=== PATIENT | male | born 1950 | race Caucasian/White ===

== ENCOUNTER 2020-09-06 23:23 | Emergency (ER) | payer MEDICARE ==
[2020-09-06] MEDS ORDERED: Nitrostat 0.4 MG (ED) SL ONE (23:33)
[2020-09-06] MEDS ORDERED: BABY ASPIRIN 81 MG CHEW PO ONE (23:33)
--- NOTE | 2020-09-06 23:33 | ERPHSYRPT ---
- History of Present Illness Time Seen by Provider: 09/06/20 23:33 Historian: patient, EMS Physician History: This is a 70-year-old overweight [id number] diabetic white male with a history of hypertension and elevated cholesterol presents with chest pain that began concurrently with diaphoresis. Patient has had frequent abnormal EKGs but normal cardiac work-ups in the past. Usually they find an abnormal EKG when the patient is undergoing cardiac clearance prior to surgical procedures. He does not have any documented history of coronary disease. He had a normal cardiac catheterization several years ago. He does not have shortness of breath. His chest pain now is just to the left of midline that radiates into his left scapula. He has no cough. He has no hemoptysis. He rates his chest pain now at a 1-2 out of 10. Patient did have injections of cortisone in his fingers and knees today. He had no chest pain prior to late afternoon early evening. He has no local physician or primary care provider. They moved here to this area approximately 4 years ago from [facility] Timing/Duration: improved Activities at Onset: none Quality: aching Location: other (Left anterior chest) Chest Pain Radiation: arm, back Severity of Pain-Max: moderate Severity of Pain-Current: mild Modifying Factors: Improves With: nothing Associated Symptoms: denies symptoms Nitro Today/Relief: 0.4 mg x 1 Aspirin Treatment Today: 325 mg x 1, provided at home Allergies/Adverse Reactions: No Known Drug Allergies Allergy (Verified 09/07/20 00:00) Home Medications: Albuterol Sulfate [Proair Hfa] 8.5 gm IH Q4H PRN PRN 09/07/20 [History] Aspirin EC 81 mg [Ecotrin 81 mg] 81 mg PO DAILY 09/07/20 [History] Glimepiride 1 mg PO DAILY 09/07/20 [History] Lisinopril/Hydrochlorothiazide [Lisinopril-Hctz 20-12.5 mg Tab] 1 each PO DAILY 09/07/20 [History] Meclizine HCl 25 mg [Antivert 25 mg] 25 mg PO Q8H PRN PRN 09/07/20 [History] Simvastatin [Zocor] 40 mg PO DAILY 09/07/20 [History] Testosterone Cypionate 200 mg IM UD 09/07/20 [History] Tramadol HCl 50 mg [Ultram 50 mg] 50 mg PO Q8H PRN PRN 09/07/20 [History] Hx Tetanus, Diphtheria Vaccination/Date Given: No Hx Influenza Vaccination/Date Given: Yes Hx Pneumococcal Vaccination/Date Given: No Travel Risk - International Travel Have you traveled outside of the country in past 3 weeks: No - Coronavirus Screening Are you exhibiting any of the following symptoms?: No Close contact with a COVID-19 positive Pt in past 14-21 Days: No - Review of Systems Constitutional: No Symptoms Eyes: No Symptoms Ears, Nose, & Throat: No Symptoms Respiratory: No Symptoms Cardiac: Chest Pain Abdominal/Gastrointestinal: No Symptoms Genitourinary Symptoms: No Symptoms Musculoskeletal: No Symptoms Skin: No Symptoms Neurological: No Symptoms Psychological: No Symptoms Endocrine: No Symptoms Hematologic/Lymphatic: No Symptoms Immunological/Allergic: No Symptoms All Other Systems: Reviewed and Negative - Past Medical History Pertinent Past Medical History: Yes Cardiac History: High Cholesterol, Hypertension - Past Surgical History Past Surgical History: Yes Other Surgical History: HERNIA. LT ARM. HEART CATH - Social History Smoking Status: Never smoker Exposure to second hand smoke: No Drug Use: none Patient Lives Alone: No - Nursing Vital Signs Nursing Vital Signs: Initial Vital Signs O2 Sat by Pulse Oximetry 94 L 09/06/20 23:33 Pain Scale Pain Intensity 2 - Physical Exam General Appearance: no apparent distress, alert, anxiety, obese Eye Exam: PERRL/EOMI, eyes nml inspection Ears, Nose, Throat Exam: normal ENT inspection, moist mucous membranes Neck Exam: normal inspection, non-tender Respiratory Exam: normal breath sounds, chest tenderness, lungs clear, airway intact, No respiratory distress Cardiovascular Exam: regular rate/rhythm, normal heart sounds, normal peripheral pulses Gastrointestinal/Abdomen Exam: soft, normal bowel sounds, No tenderness, No guarding Rectal Exam: not done Back Exam: normal inspection, normal range of motion, No CVA tenderness, No vertebral tenderness Extremity Exam: normal inspection, normal range of motion, pelvis stable Neurologic Exam: alert, oriented x 3, cooperative, 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 tested, normal mood/affect, nml cerebellar function, nml station & gait, sensation nml Skin Exam: normal color, warm, dry Lymphatic Exam: No adenopathy SpO2 Interpretation: normal O2 Delivery: Room Air - Course Nursing assessment & vital signs reviewed: Yes Ordered Tests: Active Orders 24 hr Category Date Time Status 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 Care 09/06/20 23:34 Active EKG-ER Only STAT Care 09/06/20 23:33 Active IV Insertion STAT Care 09/06/20 23:33 Active Pulse Oximetry (ED) STAT Care 09/06/20 23:33 Active CHEST 1 VIEW (PORTABLE) Stat Exams 09/07/20 00:00 Taken CBC W DIFF Stat Lab 09/06/20 23:45 Completed CMP Stat Lab 09/06/20 23:45 Completed D-DIMER QUANTITATIVE Stat Lab 09/06/20 23:45 Completed NT PRO BNP Stat Lab 09/06/20 23:45 Completed POCT GLUCOSE Stat Lab 09/06/20 23:42 Completed PROTIME WITH INR Stat Lab 09/06/20 23:45 Completed TROPONIN Q3H Lab 09/06/20 23:45 Completed TROPONIN Q3H Lab 09/07/20 02:45 Ordered TROPONIN Q3H Lab 09/07/20 05:45 Ordered TROPONIN Q3H Lab 09/07/20 08:45 Ordered TROPONIN Q3H Lab 09/07/20 11:45 Ordered Medication Summary Discontinued Medications Generic Name Dose Route Start Last Admin Trade Name Freq PRN Reason Stop Dose Admin Aspirin 324 mg 09/06/20 23:33 09/06/20 23:38 Baby Aspirin 81 Mg Chew PO 09/06/20 23:34 Not Given STAT ONE Nitroglycerin 0.4 mg 09/06/20 23:33 09/06/20 23:38 Nitrostat 0.4 Mg (Ed) SL 09/06/20 23:34 Not Given STAT ONE Lab/Rad Data: Laboratory Result Diagrams 09/06/20 23:45 09/06/20 23:45 Laboratory Results 09/06/20 09/06/20 09/06/20 Range/Units 23:45 23:45 23:45 WBC (4.0-10.5) K/mm3 RBC (4.1-5.6) M/mm3 Hgb (12.5-18.0) gm/dl Hct (42-50) % MCV (78-100) fl MCH (26-32) pg MCHC (32-36) g/dl RDW (11.5-14.0) % Plt Count (150-450) K/mm3 MPV (7.5-11.0) fl Gran % (36.0-66.0) % Eos # (Auto) (0-0.5) Absolute Lymphs (auto) (1.0-4.6) Absolute Monos (auto) (0.0-1.3) Lymphocytes % (24.0-44.0) % Monocytes % (0.0-12.0) % Eosinophils % (0.00-5.0) % Basophils % (0.0-0.4) % Absolute Granulocytes (1.4-6.9) Basophils # (0-0.4) PT 12.4 (9.4-12.5) SECONDS INR 1.05 (0.8-3.0) D-Dimer 399 (215-500) ng/mL Sodium 138 (137-145) mmol/L Potassium 4.3 (3.5-5.1) mmol/L Chloride 101 (98-107) mmol/L Carbon Dioxide 25 (22-30) mmol/L Anion Gap 15.9 H (5-15) MEQ/L BUN 23 H (9-20) mg/dL Creatinine 1.02 (0.66-1.25) mg/dL Estimated GFR > 60.0 ML/MIN Glucose 274 H (74-106) mg/dL POC Glucometer (74 to 106) mg/dL Calcium 9.2 (8.4-10.2) mg/dL Total Bilirubin 0.50 (0.2-1.3) mg/dL AST 32 (17-59) U/L ALT 31 (0-50) U/L Alkaline Phosphatase 44 (38-126) U/L Troponin I 0.084 H* (0.000-0.034) ng/mL NT-Pro-B Natriuret Pep 311 (0-900) pg/mL Serum Total Protein 7.1 (6.3-8.2) g/dL Albumin 4.5 (3.5-5.0) g/dL 09/06/20 09/06/20 Range/Units 23:45 23:42 WBC 10.8 H (4.0-10.5) K/mm3 RBC 5.15 (4.1-5.6) M/mm3 Hgb 15.9 (12.5-18.0) gm/dl Hct 48.3 (42-50) % MCV 93.8 (78-100) fl MCH 30.9 (26-32) pg MCHC 32.9 (32-36) g/dl RDW 14.5 H (11.5-14.0) % Plt Count 198 (150-450) K/mm3 MPV 10.2 (7.5-11.0) fl Gran % 94.6 H (36.0-66.0) % Eos # (Auto) 0.01 (0-0.5) Absolute Lymphs (auto) 0.48 L (1.0-4.6) Absolute Monos (auto) 0.07 (0.0-1.3) Lymphocytes % 4.5 L (24.0-44.0) % Monocytes % 0.6 (0.0-12.0) % Eosinophils % 0.1 (0.00-5.0) % Basophils % 0.2 (0.0-0.4) % Absolute Granulocytes 10.20 H (1.4-6.9) Basophils # 0.02 (0-0.4) PT (9.4-12.5) SECONDS INR (0.8-3.0) D-Dimer (215-500) ng/mL Sodium (137-145) mmol/L Potassium (3.5-5.1) mmol/L Chloride (98-107) mmol/L Carbon Dioxide (22-30) mmol/L Anion Gap (5-15) MEQ/L BUN (9-20) mg/dL Creatinine (0.66-1.25) mg/dL Estimated GFR ML/MIN Glucose (74-106) mg/dL POC Glucometer 283 H (74 to 106) mg/dL Calcium (8.4-10.2) mg/dL Total Bilirubin (0.2-1.3) mg/dL AST (17-59) U/L ALT (0-50) U/L Alkaline Phosphatase (38-126) U/L Troponin I (0.000-0.034) ng/mL NT-Pro-B Natriuret Pep (0-900) pg/mL Serum Total Protein (6.3-8.2) g/dL Albumin (3.5-5.0) g/dL - Progress Progress: improved Air Movement: good Progress Note: 09/07/20 00:54 Chest x-ray shows no acute cardiopulmonary abnormalities. There is borderline cardiomegaly present. Medical decision making: This patient has chest pain with elevated troponin. There are no beds available at [facility]. There are no cardiac beds available at [facility]. I spoke with Dr. Brock who is the hospitalist at [facility] in [facility]. I reviewed the patient history, condition, EKG findings, and laboratory results as well as chest x-ray results. He accepts the patient in transfer. He wants 1 inch of Nitropaste placed on the patient's chest. He also wants Lovenox given to the patient subcutaneously. Blood Culture(s) Obtained: No Antibiotics given: No Counseled pt/family regarding: lab results, diagnosis, need for follow-up, rad results - Departure Departure Disposition: Transfer Clinical Impression: Chest pain, Non-ST elevated myocardial infarction (non-STEMI), Elevated troponin Condition: Stable Critical Care Time: Yes Critical Care Time(excluding separately billable procedures): Critical 30-74 mins Referrals: ALDA ELY MD [Primary Care Provider] -
[2020-09-06 23:56] LABS: BASOPHIL % 0.2 % (0.0-0.4); Basophil (Absolute #) 0.02 (0-0.4); Eosinophil % 0.1 % (0.00-5.0); Eosinophil (Absolute #) 0.01 (0-0.5); Hematocrit 48.3 % (42-50); Hemoglobin 15.9 gm/dl (12.5-18.0); Lymphocyte (Absolute #) 0.48 (1.0-4.6); Lymphocytes % 4.5 % (24.0-44.0); Mean Cell Volume 93.8 fl (78-100); Mean Corpuscular Hemoglobin 30.9 pg (26-32); Mean Corpuscular Hgb Concent. 32.9 g/dl (32-36); Mean Platelet Volume 10.2 fl (7.5-11.0); Monocyte (Absolute #) 0.07 (0.0-1.3); Monocytes % 0.6 % (0.0-12.0); Neutrophil % 94.6 % (36.0-66.0); Platelet Count 198 K/mm3 (150-450); Red Blood Count 5.15 M/mm3 (4.1-5.6); Red Cell Distribution Width 14.5 % (11.5-14.0); White Blood Count 10.8 K/mm3 (4.0-10.5)
[2020-09-07 00:06] LABS: INR 1.05 (0.8-3.0); PROTIME 12.4 SECONDS (9.4-12.5)
[2020-09-07 00:20] LABS: ALBUMIN 4.5 g/dL (3.5-5.0); ALKALINE PHOSPHATASE 44 U/L (38-126); ANION GAP 15.9 MEQ/L (5-15); BLOOD UREA NITROGEN 23 mg/dL (9-20); CHLORIDE 101 mmol/L (98-107); Calcium 9.2 mg/dL (8.4-10.2); Carbon Dioxide 25 mmol/L (22-30); Creatinine 1 1.02 mg/dL (0.66-1.25); EST GLOMERULAR FILTRATION RATE > 60.0 ML/MIN; Glucose 274 mg/dL (74-106); NT PRO BNP 311 pg/mL (0-900); Potassium 4.3 mmol/L (3.5-5.1); SGOT/AST 32 U/L (17-59); SGPT/ALT 31 U/L (0-50); SODIUM 138 mmol/L (137-145); Total Protein 7.1 g/dL (6.3-8.2)
[2020-09-07 00:49] VITALS: PULSE 90
[2020-09-07] MEDS ORDERED: ENOXAPARIN SODIUM SQ STA (00:50)
[2020-09-07] MEDS ORDERED: NITRO-BID 2% UD PACKETS TOP ONE (00:52)
[2020-09-07] MEDS ORDERED: NITRO-BID 2% UD PACKETS ONE (01:07)
[2020-09-07] MEDS ORDERED: ENOXAPARIN SODIUM SQ ONE (01:07)
[2020-09-07 01:36] VITALS: BP 112/78; O2SAT 95
--- NOTE | 2020-09-07 08:59 | XRAY ---
Indication: Chest pain. Comparison: None Portable apical lordotic chest demonstrates normal heart and lungs with incidental tiny left lung calcified granuloma. Bony thorax intact.
== END 2020-09-07 01:15 | disposition short-term general hospital (02) ==
LOC: ED 23:23
DX: I21.4 Non-ST elevation (NSTEMI) myocardial infarction (principal); I10 Essential (primary) hypertension; E11.9 Type 2 diabetes mellitus without complications; Z79.899 Other long term (current) drug therapy; R79.89 Other specified abnormal findings of blood chemistry; E78.00 Pure hypercholesterolemia, unspecified
CPT/HCPCS: 36000; 36415; 71045; 80053; 82947; 83880; 84484; 85025; 85379; 85610; 93005; 93041; 94760; 96372; 99285; 99291; J1650; A9270-GY